=== PATIENT | female | born 1995 | race Caucasian/White ===

== ENCOUNTER 2018-10-06 09:46 | Emergency (ER) | payer SELFPAY ==
--- NOTE | 2018-10-06 10:16 | ED ---
Dizziness - HPI Summary HPI Summary: This pt is a 23 y/o female presenting to [facility] c/o dizziness x3 days. Pt reports that her dizziness began 3 days ago associated with nausea and vomiting. She states she wasn't able to keep anything down secondary to vomiting. Pt went to [facility] and was given medications for nausea and dizziness. Pt notes her nausea resolved but dizziness persisted. Dizziness is alleviated with resting and staying still and it is aggravated with head movement. Denies fever, chills, sore throat, headache, chest pain, palpitations , SOB. No PMHx. - History Of Current Complaint Chief Complaint: EDDizziness Stated Complaint: DIZZINESS/LATHARGIC Time Seen by Provider: 10/06/18 10:00 Hx Obtained From: Patient Onset/Duration: Still Present Timing: Days Severity Currently: Moderate Character: Dizzy Aggravating Factor(s): Change In Head Position Alleviating Factor(s): Rest Associated Signs And Symptoms: Positive: Nausea, Other: - NEGATIVE: sore throat , headache. Negative: Chest Pain, SOB, Palpitations, Fever, Chills - Allergies/Home Medications Allergies/Adverse Reactions: Allergies Allergy/AdvReac Type Severity Reaction Status Date / Time No Known Allergies Allergy Verified 10/06/18 09:51 Home Medications: Home Medications Meclizine HCl 25 mg PO BID PRN 10/06/18 [History Confirmed 10/06/18] Ondansetron ODT TAB* [Zofran 4 MG Odt TAB*] 4 mg PO Q6H PRN 10/06/18 [History Confirmed 10/06/18] PMH/Surg Hx/FS Hx/Imm Hx Endocrine/Hematology History: Denies: Hx Diabetes Respiratory History: Denies: Hx Asthma Neurological History: Denies: Hx Seizures Infectious Disease History: No Infectious Disease History: Denies: Traveled Outside the [place] in Last 30 Days - Family History Known Family History: Negative: Cardiac Disease - Social History Alcohol Use: Occasionally Substance Use Type: Reports: None Smoking Status (MU): Never Smoked Tobacco Review of Systems Negative: Fever, Chills Negative: Sore Throat Negative: Palpitations, Chest Pain Negative: Shortness Of Breath Positive: Nausea Neurological: Other - POS: dizziness Negative: Headache All Other Systems Reviewed And Are Negative: Yes Physical Exam - Summary Physical Exam Summary: VITAL SIGNS: Reviewed. GENERAL: Patient is a well-developed and nourished female who is lying comfortable in the stretcher. Patient is not in any acute respiratory distress. HEAD AND FACE: No signs of trauma. No ecchymosis, hematomas or skull depressions. No sinus tenderness. EYES: PERRLA, EOMI x 2, No injected conjunctiva, no nystagmus. EARS: Hearing grossly intact. Ear canals and tympanic membranes are within normal limits. MOUTH: Oropharynx within normal limits. NECK: Supple, trachea is midline, no adenopathy, no JVD, no carotid bruit, no c- spine tenderness, neck with full ROM. CHEST: Symmetric, no tenderness at palpation LUNGS: Clear to auscultation bilaterally. No wheezing or crackles. CVS: Regular rate and rhythm, S1 and S2 present, no murmurs or gallops appreciated. ABDOMEN: Soft, non-tender. No signs of distention. No rebound, no guarding, and no masses palpated. Bowel sounds are normal. EXTREMITIES: FROM in all major joints, no edema, no cyanosis or clubbing. NEURO: Alert and oriented x 3. No acute neurological deficits. Speech is normal and follows commands. No ataxia. SKIN: Dry and warm GCS: 15 Triage Information Reviewed: Yes Vital Signs On Initial Exam: Initial Vitals Temp Pulse Resp BP Pulse Ox 99.1 F 78 16 144/105 99 10/06/18 09:48 10/06/18 09:48 10/06/18 09:48 10/06/18 09:48 10/06/18 09:48 Vital Signs Reviewed: Yes Diagnostics - Vital Signs Vital Signs Temp Pulse Resp BP Pulse Ox 10/06/18 09:48 99.1 F 78 16 144/105 99 - Laboratory Result Diagrams: 10/06/18 10:36 10/06/18 10:36 Lab Statement: Any lab studies that have been ordered have been reviewed, and results considered in the medical decision making process. - EKG 10:36 Cardiac Rate: NL - at 76 bpm EKG Rhythm: Sinus Rhythm Summary of EKG Findings: No ST elevations. Re-Evaluation - Re-Evaluation First Eval Re-Evaluation Time: 12:15 Comment: I reviewed lab results with the pt. She will be discharged home. Dizzy Course/Dx - Course Assessment/Plan: This pt is a 23 y/o female presenting to [facility] c/o dizziness x3 days. Pt reports that her dizziness began 3 days ago associated with nausea and vomiting. She states she wasn't able to keep anything down secondary to vomiting. Pt went to [facility] and was given medications for nausea and dizziness. Pt notes her nausea resolved but dizziness persisted. Dizziness is alleviated with resting and staying still and it is aggravated with head movement. Denies fever, chills, sore throat, headache, chest pain, palpitations , SOB. No PMHx. Blood work without any significant abnormality. Beta-hCG is negative. I believe that the patient has vertigo. The patient's neurological exam is completely normal. The patient ambulated with me and has a good steady walk without any type of ataxia. The patient's symptoms worsens when she turns to the left. However taking meclizine improved her symptoms. Therefore the patient will be discharged home with follow-up from ENT. Patient is hemodynamically stable, alert and oriented 3. - Diagnoses Provider Diagnoses: Vertigo Discharge - Sign-Out/Discharge Documenting (check all that apply): Patient Departure - Discharge home - Discharge Plan Condition: Stable Disposition: HOME Patient Education Materials: Vertigo (ED) Referrals: Tho Campbell MD [Medical Doctor] - [facility] - Mukund STERLING [Primary Care Provider] - Additional Instructions: Follow up with Dr. Campbell, ENT. FOLLOW UP WITH YOUR PRIMARY CARE PROVIDER WITHIN ONE WEEK FOR HIGH BLOOD PRESSURE NOTED TODAY. RETURN TO THE ED FOR ANY NEW OR WORSENING SYMPTOMS. - Billing Disposition and Condition Condition: STABLE Disposition: Home - Attestation Statements Document Initiated by Alen: Yes Documenting Scribe: Ruthy Ortiz Provider For Whom Alen is Documenting (Include Credential): Ion Fitzpatrick MD Scribe Attestation: Ruthy Lancaster scribed for Ion Fitzpatrick MD on 10/06/18 at 1846. Scribe Documentation Reviewed: Yes Provider Attestation: The documentation as recorded by the Ruthy hill accurately reflects the service I personally performed and the decisions made by , Ion Fitzpatrick MD Status of Scribe Document: Viewed
[2018-10-06] MEDS ORDERED: NS 0.9% 1000 ML* 1,000 ML IV ONE (10:20)
[2018-10-06] MEDS ORDERED: Meclizine TAB* 12.5 MG PO ONE (10:20)
[2018-10-06] MEDS ORDERED: Diazepam TAB(*) 5 MG PO ONE (10:20)
[2018-10-06 10:48] LABS: ABS Basophils 0.1 10^3/ul (0-0.2); ABS Eosinophils 0.1 10^3/ul (0-0.6); ABS Monocytes 0.4 10^3/ul (0-0.8); ABS Neutrophils 3.3 10^3/ul (1.5-7.7); ABS Nucleated RBC 0 10^3/ul; Eosinophil % 1.2 %; Hematocrit 38 % (35-47); Hemoglobin 12.5 g/dl (12.0-16.0); Lymphocyte % 20.4 %; Mean Corpuscular HGB Conc 33 g/dl (31-36); Mean Corpuscular Hemoglobin 30 pg (27-31); Mean Corpuscular Volume 90 fL (80-97); Nucleated Red Blood Cells % 0; Platelet Count 249 10^3/ul (150-450); Red Cell Distribution Width 14 % (10.5-15); White Blood Count 4.9 10^3/ul (3.5-10.8)
[2018-10-06 11:06] LABS: EGFR Non-African American 84.4 (>60)
[2018-10-06 12:36] VITALS: BP 144/78
== END 2018-10-06 12:35 | disposition home or self-care (01) ==
LOC: ED 09:46
DX: R42 Dizziness and giddiness (principal); R11.0 Nausea
CPT/HCPCS: 36415; 80053; 83605; 83735; 84443; 84702; 85025; 93005; 99282; A9270-GY